=== PATIENT | female | born 1980 | race Two or more races ===

== ENCOUNTER 2024-11-26 16:00 | Outpatient (RCR) | payer MEDICAID, SELFPAY ==
--- NOTE | 2024-11-04 15:45 | PT.OIERPT ---
PT OP Initial Eval Patient Information Outpatient Physical Therapy Treatment Date: 11/04/24 Visit Reasons: Right hand pain Medical Diagnosis: M79.641 D16.11 Treatment Dx #1: r hand pain Treatment Dx #2: R wrist pain Start of Care: 11/04/24 Date of Onset: 03/25/24 Smoking Status Smoking Status: Never smoker Initial Assessment Subjective: Pt is 44 yr old greenlandic speaking female s/p R thumb soft tissue mass removal last year reports pain when she moves the thumb down. She points to the medial wrist as site of pain. Limitations include gripping and lifting objects which causes pain. 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 Pt also has tenderness of the thumb pad consistent with surgery. Pt requries skilled therapy in order to meet goals and has good rehab potential. 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 Ind with HEP 2. Decreased TTP of medial wrist and thumb pad from mod to min 3. Tolerate work duties x6 hr shift with <=3/10 wrist pain Treatment Plan ? 1. Manual therapy ? 2. Therex ? 3. Modalities as indicated, moist heat, ice, estim Frequency and Duration: 2x a week for 12 visits plus eval Certification Dates: 11/04/24 to 01/31/25 Procedure Charges OP PT Eval Mod Complex 30 minutes: Yes
--- NOTE | 2024-11-10 18:11 | PT.ODAYNRPT ---
PT Outpatient Daily Note OP Daily Note Outpatient Physical Therapy Treatment Date: 11/10/24 Visit Reasons: Right hand pain Subjective: Same as evaluation Objective: See F/S for therex MT: STM R APL and EPB tendons x7' Assessment: Moderate TTP of R wrist tendons Plan: Continue per POC Length of Time (minutes) of Treatment: 30 Minutes Procedure Charges Therapeutic Exercise 30 minutes: Yes
--- NOTE | 2024-11-13 17:40 | PT.ODAYNRPT ---
PT Outpatient Daily Note OP Daily Note Outpatient Physical Therapy Treatment Date: 11/13/24 Visit Reasons: Right hand pain Subjective: Wants to RTW on Sunday. Continued pain Objective: See F/S for therex MT: STM R APL and EPB tendons x7' Assessment: Moderate TTP of R wrist tendons Plan: Continue per POC Length of Time (minutes) of Treatment: 30 Minutes Procedure Charges Therapeutic Exercise 30 minutes: Yes
--- NOTE | 2024-11-20 16:13 | PT.ODAYNRPT ---
PT Outpatient Daily Note OP Daily Note Outpatient Physical Therapy Treatment Date: 11/20/24 Visit Reasons: Right hand pain Subjective: Wants to RTW on Sunday. Continued pain Objective: See F/S for therex MT: STM R APL and EPB tendons x7' Assessment: Moderate TTP of R wrist tendons consistent with DeQuervain's Plan: Continue per POC Length of Time (minutes) of Treatment: 30 Minutes Procedure Charges Therapeutic Exercise 30 minutes: Yes
--- NOTE | 2024-11-24 15:01 | PT.ODAYNRPT ---
PT Outpatient Daily Note OP Daily Note Outpatient Physical Therapy Treatment Date: 11/24/24 Visit Reasons: Right hand pain Subjective: Continued pain of thumb pad Objective: See F/S for therex MT: STM R APL and EPB tendons x7' Assessment: Moderate TTP of R wrist tendons consistent with DeQuervain's Plan: Continue per POC Length of Time (minutes) of Treatment: 30 Minutes Procedure Charges Therapeutic Exercise 30 minutes: Yes
--- NOTE | 2024-11-26 18:00 | PT.ODAYNRPT ---
PT Outpatient Daily Note OP Daily Note Outpatient Physical Therapy Treatment Date: 11/26/24 Visit Reasons: Right hand pain Subjective: Continued pain of thumb pad Objective: See F/S for therex MT: STM R APL and EPB tendons x7' Assessment: Moderate TTP of R wrist tendons consistent with DeQuervain's Plan: Continue per POC Procedure Charges Therapeutic Exercise 30 minutes: Yes
== END 2024-11-28 23:59 | disposition home or self-care (01) ==
LOC: CPTX 16:00
PROVIDERS: PCP Surgery Surgery of the Hand; Referring Provider Surgery Surgery of the Hand; Visit Provider Surgery Surgery of the Hand
DX: M79.641 Pain in right hand (principal); M25.531 Pain in right wrist; D16.11 Benign neoplasm of short bones of right upper limb; Z98.890 Other specified postprocedural states; I10 Essential (primary) hypertension
CPT/HCPCS: 97110; 97162

== ENCOUNTER 2024-12-23 17:00 | Outpatient (RCR) | payer MEDICAID, SELFPAY ==
--- NOTE | 2024-12-02 15:41 | PT.ODAYNRPT ---
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
--- NOTE | 2024-12-03 17:49 | PT.ODAYNRPT ---
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
--- NOTE | 2024-12-08 17:05 | PT.ODAYNRPT ---
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 She doesn't want manual therapy to the thumb digit pad. Objective: See F/S for therex MT: STM R APL and EPB tendons x7' Assessment: Moderate TTP of R wrist tendons consistent with DeQuervain's. The thumb pad is more tender than that. Plan: Continue per POC Length of Time (minutes) of Treatment: 30 Minutes Procedure Charges Therapeutic Exercise 30 minutes: Yes
--- NOTE | 2024-12-11 17:44 | PT.ODAYNRPT ---
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 She doesn't want manual therapy to the thumb digit pad. Objective: See F/S for therex Assessment: Moderate TTP of R wrist tendons consistent with DeQuervain's. The thumb pad is more tender than that. Plan: Continue per POC Length of Time (minutes) of Treatment: 30 Minutes Procedure Charges Therapeutic Exercise 30 minutes: Yes
--- NOTE | 2024-12-16 17:02 | PT.ODAYNRPT ---
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 She doesn't want manual therapy to the thumb digit pad since it's very sensitive Objective: See F/S for therex Assessment: Less TTP of R wrist tendons consistent with DeQuervain's. The thumb pad is very tender and she jumps with anticipation of pain when I touch it and she was encouraged to do desensitization therapy with rice or beans at home. Plan: Continue per POC Length of Time (minutes) of Treatment: 30 Minutes Procedure Charges Therapeutic Exercise 30 minutes: Yes
--- NOTE | 2024-12-18 17:36 | PT.ODAYNRPT ---
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 She doesn't want manual therapy to the thumb digit pad since it's very sensitive Objective: See F/S for therex Assessment: Less TTP of R wrist tendons consistent with DeQuervain's. The thumb pad is very tender and she jumps with anticipation of pain when I touch it and she was encouraged to do desensitization therapy with rice or beans at home. Plan: Continue per POC Length of Time (minutes) of Treatment: 30 Minutes Procedure Charges Therapeutic Exercise 30 minutes: Yes
--- NOTE | 2024-12-23 17:14 | PTNOTE_ITS ---
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 Pt has less TTP of R wrist tendons from mod to min to meet that goal. The thumb pad is very tender and she jumps with anticipation of pain when I touch it and she was encouraged to do desensitization therapy with rice or beans at home. Pt is doing HEP independently to meet that goal. She hasn't met the goal of tolerating work duties x6 hrs shift with <3/10 wrist and thumb pain. Plan: D/C with HEP Procedure Charges Therapeutic Exercise 30 minutes: Yes
== END 2024-12-26 23:59 | disposition home or self-care (01) ==
LOC: CPTX 17:00
PROVIDERS: PCP Surgery Surgery of the Hand; Referring Provider Surgery Surgery of the Hand; Visit Provider Surgery Surgery of the Hand
DX: M79.641 Pain in right hand (principal); D16.11 Benign neoplasm of short bones of right upper limb; Z98.890 Other specified postprocedural states; I10 Essential (primary) hypertension
CPT/HCPCS: 97110

== ENCOUNTER → 2025-05-08 | Outpatient (CLI) | payer MEDICAID, SELFPAY ==
--- NOTE | 2025-05-08 15:30 | XR_ITS ---
Examination: Breast ultrasound, unilateral, right complete Date and time of exam: May 08, 2025 1814 hours INDICATIONS: Palpable right breast lump 7 to 6:00 position note is beginning one year ago Technique: Real-time key scale ultrasonographic imaging performed right breast including all 4 quadrants as well as nipple retroareolar and axillary region. Findings: No cystic or solid mass IMPRESSION: BI-RADS Category 1: Negative study
== END | disposition home or self-care (01) ==
LOC: CDIM 15:02
PROVIDERS: PCP Registered Nurse Community Health; Referring Provider Registered Nurse Community Health; Visit Provider Registered Nurse Community Health
DX: N64.4 Mastodynia (principal)
CPT/HCPCS: 76641

== ENCOUNTER → 2025-05-12 | Outpatient (CLI) | payer MEDICAID, SELFPAY ==
--- NOTE | 2025-05-12 15:15 | XR_ITS ---
Examination: Screening digital mammography, bilateral Computer aided detection 3-D breast Tomosynthesis, bilateral Date and time of exam: May 12, 2025 1507 hours Compared to mammograms dating to 07/25/2023 Indication: Screening Technique: Nonmagnified MLO, CC views of the breasts to been obtained, reconstructed from 3-D Tomosynthesis images. R2 computer aided detection program utilized for evaluation of suspicious masses and/or abnormal calcifications. 3-D Tomosynthesis images obtained. Findings: The breasts are heterogeneously dense, which may obscure small masses 14 mm focal asymmetry outer right breast CC view posterior depth, 8 cm from the nipple Impression: BI-RADS Category 0: Incomplete: Need additional imaging evaluation Recommend follow-up spot tomographic views upper outer quadrant right breast posterior depth to assess the 14 mm focal asymmetry outer right breast CC view, right breast sonography to complete the workup.
== END | disposition home or self-care (01) ==
LOC: CDIM 14:57
PROVIDERS: Referring Provider Registered Nurse Community Health; Visit Provider Registered Nurse Community Health
DX: Z12.31 Encounter for screening mammogram for malignant neoplasm of breast (principal); R92.333 Mammographic heterogeneous density, bilateral breasts; N64.89 Other specified disorders of breast
CPT/HCPCS: 77063; 77067

== ENCOUNTER → 2025-07-24 | Outpatient (CLI) | payer MEDICAID, SELFPAY ==
--- NOTE | 2025-07-24 10:00 | XR_ITS ---
Examination: Abdomen sonogram, complete Date and time of exam: July 24 thousand 25, 0930 hours INDICATIONS: Flank pain beginning 8 months ago. Technique: Multiple real-time grayscale transabdominal sonographic images of the abdomen have been obtained. Findings: Normal gallbladder. Normal common bile duct 0.4 cm Pancreatic head 2.2 cm Aorta not enlarged. Liver 13.0 cm fatty infiltration no focal liver lesions Normal hepatopedal portal venous oh Patent IVC Right kidney 11.5 cm cortex 1.5 cm Left kidney 11.2 cm cortex 2.0 cm Moderate renal parenchymal scar formation Spleen 10.1 cm IMPRESSION: Normal gallbladder Moderate bilateral renal parenchymal scar formation
--- NOTE | 2025-07-24 10:30 | XR_ITS ---
Examination: Diagnostic digital mammography, unilateral, right Computer aided detection 3-D breast Tomosynthesis, unilateral Date and time of exam: July 24 thousand 25, 0942 hours INDICATIONS: Mammogram May 12, 2025 14 mm focal asymmetry outer right breast CC view, posterior depth Technique: Nonmagnified MLO, CC views of the right breast have been obtained, reconstructed from 3-D Tomosynthesis images. R2 computer aided detection program utilized for evaluation of suspicious masses and/or abnormal calcifications. 3-D Tomosynthesis images obtained. Findings: The breast is heterogeneously dense, which may obscure small masses There remains mild focal asymmetry outer right breast on the CC view posterior depth Impression: BI-RADS category 3: Probably benign findings Recommend 1 additional 6 month right mammogram follow-up as well as right breast sonography at that time
== END | disposition home or self-care (01) ==
PROVIDERS: PCP Registered Nurse Community Health; Referring Provider Registered Nurse Community Health; Visit Provider Registered Nurse Community Health
DX: R92.331 Mammographic heterogeneous density, right breast (principal); N28.89 Other specified disorders of kidney and ureter
CPT/HCPCS: 76700; 77061; 77065; G0279

== ENCOUNTER → 2025-09-02 | Outpatient (CLI) | payer MEDICAID, SELFPAY ==
[2025-09-02 12:57] LABS: HCG Qualitative,Urine Negative
--- NOTE | 2025-09-02 13:13 | XR_ITS ---
Examination: CT abdomen with intravenous contrast. Coronal 2-D reconstructions. Sagittal 2-D reconstructions. Date and time of exam: September 02, 2025, 1417 hours INDICATIONS: Upper abdominal pain beginning 1 year ago CTDI: vol (mGy): 8.04 DLP: (mGycm): 332 Technique: Axial images of the abdomen have been obtained, 3 mm slice thickness, 60 cc [id number] 2-D sagittal coronal reconstructions Low dose protocols were performed. One or more of the following dose reduction techniques were used; automated exposure control, adjustment of the mA and/or KV according to patient size, use of iterative reconstruction technique. Findings: No focal liver or splenic lesions No gallstones No pancreatic or adrenal mass No renal or ureteral calculi, no hydronephrosis Small fat-containing umbilical hernia Normal appendix No bowel obstruction Colonic diverticulosis Septated multiple right ovarian cyst, in aggregate 42 mm Urinary bladder intact Moderate osteopenia IMPRESSION: No renal or ureteral calculi, no hydronephrosis Normal appendix Septated multiple right ovarian cysts, 42 mm, recommend pelvic sonography follow-up
== END | disposition home or self-care (01) ==
LOC: SLAB 12:29
PROVIDERS: PCP Registered Nurse Community Health; Referring Provider Registered Nurse Community Health; Visit Provider Registered Nurse Community Health
DX: N83.291 Other ovarian cyst, right side (principal); Z32.00 Encounter for pregnancy test, result unknown
CPT/HCPCS: 74160; 81025; A4649; Q9967